=== PATIENT | male | born 1955 | race Caucasian/White ===

== ENCOUNTER 2020-11-16 15:32 | Inpatient (IN) | payer BC ==
[~2020-11-16] VITALS: Ht 167.6 cm; Wt 72.7 kg
[2020-11-16] MEDS ORDERED: normal saline 1000ml 1,000 ML IV ONE ×2 (16:10→18:30)
[2020-11-16 16:58] LABS: BASOPHILS % (AUTO) 0.4 % (0-1); EOSINOPHILS % (AUTO) 0 % (0-6); HEMATOCRIT 43.9 % (42.0-52.0); HEMOGLOBIN 14.6 g/dl (14.0-17.9); LYMPHOCYTES # (AUTO) 1.1 X10'3 (1.1-4.8); LYMPHOCYTES % (AUTO) 19.4 % (21-51); MEAN CORPUSCULAR HEMOGLOBIN 28.6 PG (27.0-31.0); MEAN CORPUSCULAR HGB CONC 33.4 g/dL (33.0-36.5); MEAN CORPUSCULAR VOLUME 85.7 FL (78-98); MONOCYTES # (AUTO) 0.3 X10'3 (0-0.9); MONOCYTES % (AUTO) 4.4 % (2-12); NEUTROPHILS # (AUTO) 4.3 X10'3 (1.8-7.7); NEUTROPHILS % (AUTO) 75.8 % (42-75); PLATELET COUNT 115 X10'3 (140-440); RED BLOOD COUNT 5.12 X10'6 (4.70-6.10); RED CELL DISTRIBUTION WIDTH 14.8 % (11.5-14.5); WHITE BLOOD COUNT 5.7 X10'3 (4.5-11.0)
[2020-11-16 17:00] LABS: ALANINE AMINOTRANSFERASE 45 U/L (12-78); ALBUMIN 3.1 G/DL (3.4-5.0); ALBUMIN/GLOBULIN RATIO 0.8 (1.1-1.5); ALKALINE PHOSPHATASE 68 IU/L (46-116); ANION GAP 11 (8-16); ASPARTATE AMINO TRANSFERASE 64 U/L (10-37); BILIRUBIN,TOTAL 0.4 MG/DL (0.1-1.0); BLOOD UREA NITROGEN 44 MG/DL (7-18); BUN/CREATININE RATIO 24.4 (5.4-32.0); CALCIUM 7.8 MG/DL (8.5-10.1); CHLORIDE 102 MMOL/L (99-107); GLUCOSE 92 MG/DL (70-104); POTASSIUM 4.2 MMOL/L (3.5-5.1); SODIUM 134 MMOL/L (135-145); TOTAL CARBON DIOXIDE 20.6 MMOL/L (24-32); TOTAL PROTEIN 6.9 G/DL (6.4-8.2); eGFR 38 ML/MIN
[2020-11-16 17:04] LABS: D-DIMER 1.06 MG/L FEU (0-0.50)
[2020-11-16] MEDS ORDERED: dexamethasone 4mg tablet PO ONE (17:50)
[2020-11-16] MEDS ORDERED: DEXAMETHASONE 6 MG TABLET PO ONE (17:55)
[2020-11-16] MEDS ORDERED: REMDESIVIR INJ 200 MG in normal saline 100ml IV soln 60 ML IV ONE (19:15)
[2020-11-16 19:46] LABS: C-REACTIVE PROTEIN 10.47 MG/DL (0.0-0.5); LACTATE DEHYDROGENASE 745 U/L (85-227)
[2020-11-16] MEDS ORDERED: NO HOME MEDS (19:59)
--- NOTE | 2020-11-16 20:11 | NUR ---
PT IS RESTING QUIETLY ON GURNEY, RESP EVEN AND UNLABORED, SKIN P/W/D, PT BECOMES SOB WHILE MILD EXERTION, PT IS ON NASAL CANNULA 4LITER 02, DR LLAMAS AT BEDSIDE TO EVALUATE PT
[2020-11-16] MEDS ORDERED: magnesium 2GM in 50ml NS 50 ML IV PRN (20:25)
[2020-11-16] MEDS ORDERED: magnesium 4gm in 100ml NS 100 ML IV PRN (20:25)
[2020-11-16] MEDS ORDERED: magnesium Cl slow-release 64mg tablet PO PRN (20:25)
[2020-11-16] MEDS ORDERED: acetaminophen 325mg tablet PO PRN ×2 (20:25)
[2020-11-16] MEDS ORDERED: potassium Cl 40MEQ/1/2NS 520ml 520 ML IV PRN ×2 (20:25)
[2020-11-16] MEDS ORDERED: ondansetron/PF 4mg/2ml inj IV PRN (20:25)
[2020-11-16] MEDS ORDERED: albuterol 2.5 MG/3 ML nebule NEB PRN (20:25)
[2020-11-16] MEDS ORDERED: potassium Cl 20 mEq SR tablet PO PRN ×2 (20:25)
--- NOTE | 2020-11-16 20:46 | NUR ---
Patients daughter Brenda. Phone [phone].
[2020-11-16] MEDS ORDERED: temazepam 15mg capsule PO PRN (21:00)
[2020-11-16] MEDS: normal saline 1000ml 1,000 ML IV SCH (22:30)
[2020-11-16 22:44] LABS: ABG BASE EXCESS -5.8 mmol/L (-2.0-2.0); ABG HCO3 17.5 mmol/L (22.0-26.0); ABG OXYGEN SATURATION 95.1 % (94-97); ABG PCO2 (T) 29.2 mmHg (35.0-48.0); ABG PO2 (T) 80.2 mmHg (75.0-100.0); ALLEN'S TEST POSITIVE; FCOHb 0.5 % (0.0-3.9); FLOW 4 L/min; FMetHb 0.3 % (0.0-1.5); FO2Hb 94.3 % (94-97); PATIENT TEMPERATURE 37.5; TOTAL HEMOGLOBIN 13.6 G/dl (14.0-18.0)
--- NOTE | 2020-11-17 03:00 | NUR ---
Patient using urinal independently. Has been resting quietly in bed with even and unlabored respirations.
[2020-11-17 04:29] LABS: BASOPHILS % (AUTO) 0.2 % (0-1); EOSINOPHILS % (AUTO) 0 % (0-6); HEMATOCRIT 40.1 % (42.0-52.0); HEMOGLOBIN 13.3 g/dl (14.0-17.9); LYMPHOCYTES # (AUTO) 0.5 X10'3 (1.1-4.8); LYMPHOCYTES % (AUTO) 12.8 % (21-51); MEAN CORPUSCULAR HEMOGLOBIN 28.4 PG (27.0-31.0); MEAN CORPUSCULAR HGB CONC 33.1 g/dL (33.0-36.5); MEAN CORPUSCULAR VOLUME 85.7 FL (78-98); MEAN PLATELET VOLUME 9.1 FL (7.4-10.4); MONOCYTES # (AUTO) 0.2 X10'3 (0-0.9); MONOCYTES % (AUTO) 5.5 % (2-12); NEUTROPHILS # (AUTO) 3.2 X10'3 (1.8-7.7); NEUTROPHILS % (AUTO) 81.5 % (42-75); PLATELET COUNT 116 X10'3 (140-440); RED BLOOD COUNT 4.68 X10'6 (4.70-6.10); RED CELL DISTRIBUTION WIDTH 15.2 % (11.5-14.5); WHITE BLOOD COUNT 3.9 X10'3 (4.5-11.0)
[2020-11-17 04:48] LABS: ALBUMIN 2.5 G/DL (3.4-5.0); ANION GAP 12 (8-16); BLOOD UREA NITROGEN 31 MG/DL (7-18); BUN/CREATININE RATIO 30.4 (5.4-32.0); CALCIUM 7.3 MG/DL (8.5-10.1); CHLORIDE 106 MMOL/L (99-107); CREATININE 1.02 MG/DL (0.60-1.10); GLUCOSE 123 MG/DL (70-104); POTASSIUM 4.7 MMOL/L (3.5-5.1); SODIUM 137 MMOL/L (135-145); TOTAL CARBON DIOXIDE 18.6 MMOL/L (24-32); eGFR 73 ML/MIN
--- NOTE | 2020-11-17 07:38 | NUR ---
LENKA CALLED TO SEE HOW PT DOING. [phone]/ [phone]. INFORMED HER PT WILL BE GETTING ADMITTED.
[2020-11-17] MEDS ORDERED: dexamethasone 4mg/ml inj IV SCH (08:00)
[2020-11-17] MEDS ORDERED: heparin, porcine 5000 units/ml vial SQ SCH (08:00)
[2020-11-17] MEDS: K and/or MAG REPLACEMENT MC SCH ×2 (08:00→20:00)
[2020-11-17] MEDS: REMDESIVIR INJ 100 MG in normal saline 100ml IV soln 80 ML IV SCH (08:46)
[2020-11-17] MEDS: dexamethasone 6 MG in NS 50ml IV soln IV SCH ×2 (08:46→22:18)
--- NOTE | 2020-11-17 09:52 | NUR ---
CHENG BLACKWELL [phone]
--- NOTE | 2020-11-17 10:00 | NUR ---
CALLED DR. TIRADO TO ASK IF ANTIBOTICS ARE GOING TO BE TREATED FOR PTS PNEUMONIA. NO NEW ORDERS AT THIS TIME.
--- NOTE | 2020-11-17 16:30 | NUR ---
Up to void.
[2020-11-17] MEDS: levoFLOXACIN-Levaquin 500mg/D5 100 ML IV SCH (17:53)
[2020-11-17] MEDS: enoxaparin 40mg/0.4ml syringe SQ SCH (22:18)
--- NOTE | 2020-11-17 22:45 | NUR ---
REPORT GIVEN TO JOANNA PAULSON
[2020-11-17 23:30] VITALS: BP 130/77
[2020-11-18 04:00] VITALS: BP 120/74
[2020-11-18 07:54] VITALS: BP 123/76
[2020-11-18] MEDS: K and/or MAG REPLACEMENT MC SCH ×2 (08:00→20:00)
[2020-11-18 09:03] LABS: EOSINOPHILS % (AUTO) 0 % (0-6); LYMPHOCYTES # (AUTO) 0.7 X10'3 (1.1-4.8); MEAN PLATELET VOLUME 9.4 FL (7.4-10.4); MONOCYTES # (AUTO) 0.5 X10'3 (0-0.9); WHITE BLOOD COUNT 5.2 X10'3 (4.5-11.0)
[2020-11-18 09:06] LABS: BASOPHILS % (AUTO) 0.2 % (0-1); HEMATOCRIT 39.6 % (42.0-52.0); HEMOGLOBIN 13.3 g/dl (14.0-17.9); LYMPHOCYTES % (AUTO) 13.1 % (21-51); MEAN CORPUSCULAR HEMOGLOBIN 28.3 PG (27.0-31.0); MEAN CORPUSCULAR HGB CONC 33.6 g/dL (33.0-36.5); MEAN CORPUSCULAR VOLUME 84.4 FL (78-98); MONOCYTES % (AUTO) 8.7 % (2-12); PLATELET COUNT 156 X10'3 (140-440); RED BLOOD COUNT 4.69 X10'6 (4.70-6.10)
[2020-11-18 09:40] LABS: ALBUMIN 2.5 G/DL (3.4-5.0); ANION GAP 13 (8-16); BLOOD UREA NITROGEN 25 MG/DL (7-18); BUN/CREATININE RATIO 29.4 (5.4-32.0); C-REACTIVE PROTEIN 3.69 MG/DL (0.0-0.5); CALCIUM 8.1 MG/DL (8.5-10.1); CHLORIDE 109 MMOL/L (99-107); CREATININE 0.85 MG/DL (0.60-1.10); GLUCOSE 199 MG/DL (70-104); MAGNESIUM 1.9 MG/DL (1.5-2.4); POTASSIUM 4.3 MMOL/L (3.5-5.1); SODIUM 142 MMOL/L (135-145); TOTAL CARBON DIOXIDE 20.4 MMOL/L (24-32); eGFR 90 ML/MIN
[2020-11-18 09:46] LABS: BURR CELLS 2+; LARGE PLATELETS FEW; PLATELET ESTIMATE NORMAL
[2020-11-18] MEDS: levoFLOXACIN-Levaquin 500mg/D5 100 ML IV SCH (09:52)
[2020-11-18] MEDS: dexamethasone 6 MG in NS 50ml IV soln IV SCH ×2 (09:52→20:15)
[2020-11-18] MEDS: REMDESIVIR INJ 100 MG in normal saline 100ml IV soln 80 ML IV SCH (09:53)
[2020-11-18] MEDS: enoxaparin 40mg/0.4ml syringe SQ SCH ×2 (09:53→20:15)
[2020-11-18 09:55] LABS: D-DIMER 0.75 MG/L FEU (0-0.50)
[2020-11-18 12:26] VITALS: BP 137/84
[2020-11-18 15:05] VITALS: BP 129/69
--- NOTE | 2020-11-18 18:57 | NUR ---
Patient in room COVID 07. I have received report from Dima PAULSON and had the opportunity to ask questions and assume patient care.
[2020-11-18 19:00] VITALS: BP 122/79
[2020-11-18] MEDS: lactobacillus rhamnosus 10,000 MMU CELLS/CAPSULE PO SCH (20:14)
[2020-11-18] MEDS: normal saline 1000ml 1,000 ML IV SCH (20:26)
[2020-11-18 23:00] VITALS: BP 115/61
[2020-11-19 03:00] VITALS: BP 127/64
--- NOTE | 2020-11-19 06:35 | NUR ---
Problems reprioritized. Patient report given, questions answered & plan of care reviewed with Sandra PAULSON.
[2020-11-19] MEDS: K and/or MAG REPLACEMENT MC SCH ×2 (08:00→20:00)
[2020-11-19] MEDS: enoxaparin 40mg/0.4ml syringe SQ SCH ×2 (08:02→20:11)
[2020-11-19] MEDS: REMDESIVIR INJ 100 MG in normal saline 100ml IV soln 80 ML IV SCH (08:02)
[2020-11-19] MEDS: levoFLOXACIN-Levaquin 500mg/D5 100 ML IV SCH (08:03)
[2020-11-19] MEDS: lactobacillus rhamnosus 10,000 MMU CELLS/CAPSULE PO SCH ×2 (08:03→20:10)
[2020-11-19] MEDS: dexamethasone 6 MG in NS 50ml IV soln IV SCH ×2 (08:05→20:18)
[2020-11-19 08:58] LABS: EOSINOPHILS % (AUTO) 0 % (0-6); HEMOGLOBIN 13.6 g/dl (14.0-17.9); MONOCYTES # (AUTO) 0.6 X10'3 (0-0.9); RED BLOOD COUNT 4.85 X10'6 (4.70-6.10)
[2020-11-19 09:00] LABS: BASOPHILS % (AUTO) 0.3 % (0-1); HEMATOCRIT 40.6 % (42.0-52.0); LYMPHOCYTES # (AUTO) 0.6 X10'3 (1.1-4.8); MEAN CORPUSCULAR HGB CONC 33.4 g/dL (33.0-36.5); MEAN CORPUSCULAR VOLUME 83.7 FL (78-98); MONOCYTES % (AUTO) 8.2 % (2-12); NEUTROPHILS # (AUTO) 5.8 X10'3 (1.8-7.7); NEUTROPHILS % (AUTO) 82.5 % (42-75); PLATELET COUNT 188 X10'3 (140-440); WHITE BLOOD COUNT 7.1 X10'3 (4.5-11.0)
[2020-11-19 09:11] LABS: ALBUMIN 2.6 G/DL (3.4-5.0); ANION GAP 11 (8-16); BLOOD UREA NITROGEN 24 MG/DL (7-18); BUN/CREATININE RATIO 24.7 (5.4-32.0); CALCIUM 8.3 MG/DL (8.5-10.1); CHLORIDE 112 MMOL/L (99-107); CREATININE 0.97 MG/DL (0.60-1.10); GLUCOSE 225 MG/DL (70-104); MAGNESIUM 2.1 MG/DL (1.5-2.4); POTASSIUM 4.9 MMOL/L (3.5-5.1); SODIUM 146 MMOL/L (135-145); TOTAL CARBON DIOXIDE 23.5 MMOL/L (24-32); eGFR 77 ML/MIN
[2020-11-19 09:13] LABS: D-DIMER 0.63 MG/L FEU (0-0.50)
[2020-11-19 10:00] VITALS: BP 129/78
[2020-11-19 15:00] VITALS: BP 141/77
--- NOTE | 2020-11-19 18:30 | NUR ---
Patient in room COVID 07. I have received report from LORENE Flores and had the opportunity to ask questions and assume patient care.
[2020-11-20 02:00] VITALS: BP 117/63
--- NOTE | 2020-11-20 06:32 | NUR ---
Problems reprioritized. Patient report given, questions answered & plan of care reviewed with LORENE Ward.
[2020-11-20 07:00] VITALS: BP 119/59
--- NOTE | 2020-11-20 07:13 | NUR ---
Patient in room COVID 07. I have received report from LORENE MORRISON and had the opportunity to ask questions and assume patient care.
[2020-11-20] MEDS: K and/or MAG REPLACEMENT MC SCH ×2 (08:00→20:00)
[2020-11-20] MEDS ORDERED: ALBUTEROL INHALER 1 PUFF/90 MCG INHALER IH PRN (08:30)
[2020-11-20 08:31] LABS: BASOPHILS % (AUTO) 0.1 % (0-1); EOSINOPHILS % (AUTO) 0.1 % (0-6); HEMATOCRIT 38.2 % (42.0-52.0); HEMOGLOBIN 13.1 g/dl (14.0-17.9); LYMPHOCYTES # (AUTO) 0.7 X10'3 (1.1-4.8); MEAN CORPUSCULAR HEMOGLOBIN 28.6 PG (27.0-31.0); MEAN CORPUSCULAR HGB CONC 34.2 g/dL (33.0-36.5); MEAN CORPUSCULAR VOLUME 83.8 FL (78-98); MEAN PLATELET VOLUME 9.9 FL (7.4-10.4); MONOCYTES # (AUTO) 0.6 X10'3 (0-0.9); MONOCYTES % (AUTO) 7.5 % (2-12); NEUTROPHILS % (AUTO) 82.3 % (42-75); PLATELET COUNT 190 X10'3 (140-440); RED BLOOD COUNT 4.56 X10'6 (4.70-6.10); WHITE BLOOD COUNT 7.3 X10'3 (4.5-11.0)
[2020-11-20 08:50] LABS: D-DIMER 0.66 MG/L FEU (0-0.50)
[2020-11-20] MEDS: enoxaparin 40mg/0.4ml syringe SQ SCH ×2 (09:12→20:33)
[2020-11-20] MEDS: dexamethasone 6 MG in NS 50ml IV soln IV SCH ×2 (09:12→20:32)
[2020-11-20] MEDS: lactobacillus rhamnosus 10,000 MMU CELLS/CAPSULE PO SCH ×2 (09:12→20:32)
[2020-11-20 09:22] LABS: ALBUMIN 2.5 G/DL (3.4-5.0); ANION GAP 10 (8-16); BLOOD UREA NITROGEN 26 MG/DL (7-18); BUN/CREATININE RATIO 29.2 (5.4-32.0); C-REACTIVE PROTEIN 1.08 MG/DL (0.0-0.5); CALCIUM 8.4 MG/DL (8.5-10.1); CHLORIDE 113 MMOL/L (99-107); CREATININE 0.89 MG/DL (0.60-1.10); GLUCOSE 143 MG/DL (70-104); MAGNESIUM 2.1 MG/DL (1.5-2.4); POTASSIUM 4.4 MMOL/L (3.5-5.1); SODIUM 145 MMOL/L (135-145); TOTAL CARBON DIOXIDE 22.3 MMOL/L (24-32); eGFR 86 ML/MIN
[2020-11-20 11:00] VITALS: BP 128/89
[2020-11-20] MEDS: levoFLOXACIN 500mg tablet PO SCH (11:26)
[2020-11-20] MEDS: REMDESIVIR INJ 100 MG in normal saline 100ml IV soln 80 ML IV SCH (11:27)
[2020-11-20 16:00] VITALS: BP 140/79
[2020-11-20 18:00] VITALS: BP 129/68
--- NOTE | 2020-11-20 18:30 | NUR ---
Patient in room COVID 07. I have received report from Sylvia PAULSON and had the opportunity to ask questions and assume patient care.
--- NOTE | 2020-11-20 18:33 | NUR ---
Problems reprioritized. Patient report given, questions answered & plan of care reviewed with LORENE CHACON.
[2020-11-20] MEDS: normal saline 1000ml 1,000 ML IV SCH (20:25)
--- NOTE | 2020-11-20 21:36 | NUR ---
Tried to call patients reji guajardo ([phone]),but just reached a voice mail that said "lulu, leave a message", therefore no message left as no idea who can hear it. Addendum: 11/21/20 at 0044 by Araceli Doran RN Phone number is [phone]
[2020-11-20 22:00] VITALS: BP 142/74
[2020-11-21 03:00] VITALS: BP 111/52
--- NOTE | 2020-11-21 06:19 | NUR ---
Problems reprioritized. Patient report given, questions answered & plan of care reviewed with Sylvia PAULSON.
--- NOTE | 2020-11-21 06:19 | NUR ---
Patient in room COVID 07A. I have received report from LORENE CHACON and had the opportunity to ask questions and assume patient care.
[2020-11-21 07:00] VITALS: BP 120/65
[2020-11-21] MEDS: K and/or MAG REPLACEMENT MC SCH ×2 (08:00→20:00)
[2020-11-21 08:13] LABS: EOSINOPHILS % (AUTO) 0 % (0-6); HEMOGLOBIN 13.4 g/dl (14.0-17.9); MONOCYTES # (AUTO) 0.5 X10'3 (0-0.9)
[2020-11-21 08:16] LABS: BASOPHILS % (AUTO) 0 % (0-1); LYMPHOCYTES # (AUTO) 0.7 X10'3 (1.1-4.8); LYMPHOCYTES % (AUTO) 9.8 % (21-51); MEAN CORPUSCULAR HEMOGLOBIN 28.6 PG (27.0-31.0); MEAN CORPUSCULAR HGB CONC 33.4 g/dL (33.0-36.5); MEAN CORPUSCULAR VOLUME 85.4 FL (78-98); MEAN PLATELET VOLUME 9.6 FL (7.4-10.4); MONOCYTES % (AUTO) 7.2 % (2-12); NEUTROPHILS # (AUTO) 6.2 X10'3 (1.8-7.7); PLATELET COUNT 205 X10'3 (140-440); RED BLOOD COUNT 4.69 X10'6 (4.70-6.10); RED CELL DISTRIBUTION WIDTH 14.5 % (11.5-14.5); WHITE BLOOD COUNT 7.5 X10'3 (4.5-11.0)
[2020-11-21 08:19] LABS: D-DIMER 0.95 MG/L FEU (0-0.50)
[2020-11-21 08:38] LABS: ALBUMIN 2.5 G/DL (3.4-5.0); ANION GAP 8 (8-16); BLOOD UREA NITROGEN 22 MG/DL (7-18); BUN/CREATININE RATIO 27.8 (5.4-32.0); C-REACTIVE PROTEIN 0.92 MG/DL (0.0-0.5); CALCIUM 8.2 MG/DL (8.5-10.1); CHLORIDE 111 MMOL/L (99-107); CREATININE 0.79 MG/DL (0.60-1.10); GLUCOSE 137 MG/DL (70-104); MAGNESIUM 2.3 MG/DL (1.5-2.4); POTASSIUM 4.4 MMOL/L (3.5-5.1); SODIUM 144 MMOL/L (135-145); eGFR > 90 ML/MIN
--- NOTE | 2020-11-21 09:14 | NUR ---
Initial: Pt admitted w/ +Covid and SOB. Pt able to eat moderately well, avg itnake 67% x 8 meals which meets 100% of est energy needs and 70% of est protein needs. No N/V/D noted, LBM 11/20. No nutritional diagnosis at this time, will continue to monitor. Addendum: 11/21/20 at [address] Amended: Links added.
[2020-11-21] MEDS: dexamethasone 6 MG in NS 50ml IV soln IV SCH ×2 (10:14→20:50)
[2020-11-21] MEDS: normal saline 1000ml 1,000 ML IV SCH (10:15)
[2020-11-21] MEDS: levoFLOXACIN 500mg tablet PO SCH (10:15)
[2020-11-21] MEDS: lactobacillus rhamnosus 10,000 MMU CELLS/CAPSULE PO SCH ×2 (10:15→20:50)
[2020-11-21] MEDS: enoxaparin 40mg/0.4ml syringe SQ SCH ×2 (10:15→20:50)
[2020-11-21 11:00] VITALS: BP 110/64
[2020-11-21 14:00] VITALS: BP 132/71
[2020-11-21 18:00] VITALS: BP 123/103
--- NOTE | 2020-11-21 18:28 | NUR ---
Patient in room COVID 07. I have received report from Sylvia PAULSON and had the opportunity to ask questions and assume patient care.
--- NOTE | 2020-11-21 18:29 | NUR ---
Problems reprioritized. Patient report given, questions answered & plan of care reviewed with LORENE CHACON.
[2020-11-21] MEDS: ALBUTEROL INHALER 1 PUFF/90 MCG INHALER IH SCH (20:33)
[2020-11-21] MEDS ORDERED: LEVO500T89 PO (21:36)
[2020-11-21] MEDS ORDERED: ALBU6.7H9 IH (21:36)
[2020-11-21 22:00] VITALS: BP 130/68
[2020-11-22 02:00] VITALS: BP 122/61
[2020-11-22] MEDS: ALBUTEROL INHALER 1 PUFF/90 MCG INHALER IH SCH ×5 (03:42→20:42)
[2020-11-22 06:00] VITALS: BP 137/77
--- NOTE | 2020-11-22 06:30 | NUR ---
Problems reprioritized. Patient report given, questions answered & plan of care reviewed with Cathy PAULSON.
--- NOTE | 2020-11-22 06:51 | NUR ---
Patient in room COVID 07A. I have received report from LORENE CHACON and had the opportunity to ask questions and assume patient care.
[2020-11-22] MEDS: dexamethasone 6 MG in NS 50ml IV soln IV SCH (07:48)
[2020-11-22] MEDS: enoxaparin 40mg/0.4ml syringe SQ SCH ×2 (07:48→20:16)
[2020-11-22] MEDS: lactobacillus rhamnosus 10,000 MMU CELLS/CAPSULE PO SCH ×2 (07:48→20:15)
[2020-11-22] MEDS: K and/or MAG REPLACEMENT MC SCH ×2 (08:00→19:35)
[2020-11-22] MEDS ORDERED: DEC4T PO (08:28)
[2020-11-22] MEDS ORDERED: ALBU6.7H9 IH (08:28)
[2020-11-22 09:53] LABS: C-REACTIVE PROTEIN 1.09 MG/DL (0.0-0.5); MAGNESIUM 2.3 MG/DL (1.5-2.4)
[2020-11-22 10:00] VITALS: BP 109/57
[2020-11-22 11:10] LABS: D-DIMER 0.79 MG/L FEU (0-0.50)
[2020-11-22] MEDS: levoFLOXACIN 500mg tablet PO SCH (11:29)
--- NOTE | 2020-11-22 12:50 | NUR ---
Page Sent PAGER ID: [phone] MESSAGE: [phone] RE: PATRICE LARA 7A DR. BLOOM WANTS TO KEEP PT A COUPLE MORE DAYS UNTIL HIS O2 IS BETTER. HE IS ON HIGH FLOW 6L SAT 92%. HIS D-DIMER AND CRP ARE STILL ELEVATED WELL. DO YOU WANT TO CANCEL THE D/C OR LEAVE IT? THANKS!
[2020-11-22 14:00] VITALS: BP 100/50
[2020-11-22 18:00] VITALS: BP 122/61
--- NOTE | 2020-11-22 18:30 | NUR ---
Patient in room COVID 07. I have received report from LORENE Morgan and had the opportunity to ask questions and assume patient care.
--- NOTE | 2020-11-22 18:32 | NUR ---
Problems reprioritized. Patient report given, questions answered & plan of care reviewed with LORENE COPELAND.
[2020-11-22] MEDS: dexamethasone inj 4 MG in normal saline 50ml IV soln 50 ML IV SCH (20:00)
[2020-11-22] MEDS: normal saline 1000ml 1,000 ML IV SCH (20:25)
[2020-11-22 22:00] VITALS: BP 132/68
[2020-11-23 02:00] VITALS: BP 137/72
[2020-11-23] MEDS: ALBUTEROL INHALER 1 PUFF/90 MCG INHALER IH SCH ×2 (02:10→08:05)
--- NOTE | 2020-11-23 06:27 | NUR ---
Problems reprioritized. Patient report given, questions answered & plan of care reviewed with LORENE Mera.
[2020-11-23 07:00] VITALS: BP 145/77
--- NOTE | 2020-11-23 07:36 | NUR ---
Patient in room COVID 07. I have received report from Sofiya PAULSON and had the opportunity to ask questions and assume patient care.
[2020-11-23 08:28] LABS: C-REACTIVE PROTEIN 0.63 MG/DL (0.0-0.5); MAGNESIUM 2.1 MG/DL (1.5-2.4)
[2020-11-23 08:33] LABS: D-DIMER 0.52 MG/L FEU (0-0.50)
[2020-11-23] MEDS: lactobacillus rhamnosus 10,000 MMU CELLS/CAPSULE PO SCH (09:08)
[2020-11-23] MEDS: enoxaparin 40mg/0.4ml syringe SQ SCH (09:08)
[2020-11-23] MEDS: dexamethasone inj 4 MG in normal saline 50ml IV soln 50 ML IV SCH (09:08)
--- NOTE | 2020-11-23 09:50 | NUR ---
O2 Sat at rest on room air:_84__% If below 89%: Recovery O2 Sat at rest on __4_LPM:___94 via NASAL CANNULA____(mask/nasal cannula, etc..) No further documentation is necessary. If O2 Sat did not drop below 89% on room air,ambulate patient on room air. O2 Sat while ambulating on room air:___% Recovery O2 Sat while ambulating on ___LPM:___% No further documentation is necessary. If patient does not drop below 89% while ambulating, he/she does not qualify for home O2.
--- NOTE | 2020-11-23 13:19 | NUR ---
Patient stable for discharge per MD order, all discharge instructions reviewed with patient and all questions answered. New prescriptions faxed to [facility]. Oxygen was delivered to the hospital and to the home of the patient by [facility]. PIV discontinued, cannula intact. Telemetry discontinued, telecommunications linesworker notified. All belongings collected and sent with patient. Patient picked up by family member in private wheelchair, wheeled to lobby by staff.
== END 2020-11-23 13:19 | disposition home or self-care (01) | DRG 177 ==
LOC: ER 15:33 → ED HOLD 20:28 → COVID IP 11-17 23:30
PROVIDERS: ADMIT Internal Medicine; ATTEND Internal Medicine
PROC: XW033E5 Introduction of Remdesivir Anti-infective into Peripheral Vein, Percutaneous Approach, New Technology Group 5 (ICD-10-PCS; principal; 2020-11-16)
PROC: 5A0945A Assistance with Respiratory Ventilation, 24-96 Consecutive Hours, High Flow/Velocity Cannula (ICD-10-PCS; 2020-11-20)
DX: U07.1 COVID-19 (principal); J12.82 Pneumonia due to coronavirus disease 2019; J96.01 Acute respiratory failure with hypoxia; N17.0 Acute kidney failure with tubular necrosis; N18.30 Chronic kidney disease, stage 3 unspecified; D69.6 Thrombocytopenia, unspecified; Z87.891 Personal history of nicotine dependence
CPT/HCPCS: 36415; 36600; 71045; 80048; 80053; 82803; 83605; 83615; 83735; 83880; 84145; 84484; 85008; 85018; 85025; 85379; 86140; 87040; 87081; 87635; 93005; 94640; 94760; 96361; 96365; 97110; 97116; 97161; 97530; 99285; C9803; G0378; J1100; J1644; J1650; J1956; J7030; J8540

== ENCOUNTER 2024-10-01 10:02 | Outpatient (CLI) | payer MEDICARE, BC ==
[~2024-10-01 10:02] MED LIST: ALBU8.5H17 INH; AZIT-164 PO; IPRA3AMP9 NEB; SUMA100T16 PO
--- NOTE | 2024-10-01 13:28 | RADIOLOGY REPORT ---
INDICATION: UNSPECIFIED ACQUIRED DEFORMITY OF UNSPECIFIED LOWER LEG COMPARISON: None TECHNIQUE: CT of the right lower extremity was performed without contrast. Volume transverse images w ere obtained and reconstructed in multiple planes using bone and soft tissue algorithms. Radiation Dose Information: CT Dose: CTDI volume is 8.3 mGy. Dose-length product is 1359.1 mGy*cm FINDINGS/IMPRESSION: The alignment is normal. Moderate tricompartmental degenerative changes. There is no fracture, dislocation or aggressive osseous lesion. Small joint effusion. Small fat containing right inguinal hernia. Moderate pre patellar and pretibial soft-tissue swelling and edema. Small lang's cyst measures 2.4 cm.
== END 2024-10-01 23:59 | disposition home or self-care (01) ==
LOC: RAD 10:02
PROVIDERS: ATTEND Orthopaedic Surgery
DX: M17.11 Unilateral primary osteoarthritis, right knee (principal); M71.21 Synovial cyst of popliteal space [Baker], right knee; M25.461 Effusion, right knee; M21.961 Unspecified acquired deformity of right lower leg; M79.89 Other specified soft tissue disorders; K40.90 Unilateral inguinal hernia, without obstruction or gangrene, not specified as recurrent; R60.0 Localized edema
CPT/HCPCS: 73700